=== PATIENT | male | born 1975 | race Caucasian/White ===

== ENCOUNTER 2023-10-09 08:32 | Day surgery (SDC) | payer OTHER, SELFPAY ==
[2023-10-09] MEDS: LACTATED RINGERS 1,000 ML 42 ML IV (09:00)
[2023-10-09 09:01] VITALS: BP 106/75; PULSE 85; RESP 18; TEMP 36.3; O2SAT 98
--- NOTE | 2023-10-09 09:11 | PM.HP.1 ---
History of Present Illness History of Present Illness Date Patient Seen: 10/09/23 Time Patient Seen: 09:12 Chief complaint: Colonoscopy Narrative: Elliott is a 48-year-old man who is here for a colonoscopy pelvic pain. See previous office note details [facility] Medical History (Updated 09/04/23 @ 10:18 by Alysha Mccarthy RN) Dysplastic nevi Social History Smoking Status: Never smoker alcohol intake: current Meds Home Medications and Allergies Home Medications Medication Instructions Recorded Confirmed Type cholecalciferol (vitamin D3) 25 75 mcg PO DAILY 09/04/23 09/04/23 History mcg (1,000 unit) capsule coenzyme Q10 100 mg capsule 100 mg PO DAILY 09/04/23 09/04/23 History multivitamin with minerals 1 tab PO DAILY 09/04/23 09/04/23 History (Multiple Vitamin-Minerals tablet) omega-3 fatty acids 1,000 mg 1,000 mg PO DAILY 09/04/23 09/04/23 History capsule Allergies Allergy/AdvReac Type Severity Reaction Status Date / Time No Known Drug Allergies Allergy Verified 10/09/23 08:58 Exam Vital Signs (past 8 hours): - 10/09/23 09:01 Temperature 97.3 F L Pulse Rate 85 Respiratory Rate 18 Blood Pressure 106/75 Pulse Oximetry 98 Const General: healthy appearing Assessment & Plan Assessment and plan (1) Rectal pain: Status: Acute Plan We reviewed the risks and colonoscopy and he would like to proceed.
--- NOTE | 2023-10-09 09:35 | PM.OP.COLON ---
Operative Date/Time/Diagnoses Date of procedure: 10/09/23 Time of procedure: 09:35 Pre-op diagnosis: Rectal pain Post-op diagnosis: same Procedure & Clinicians Study performed: Colonoscopy Same procedure as scheduled: Yes Surgeon: Tung Chacon Procedure Notes Procedure in detail: Surgeon: Tung Chacon MD Anesthesia: Mercedez Allen CRNA Procedure: The patient was brought to the endoscopy suite, placed in left lateral decubitus position. The patient was connected to monitoring devices. A time-out was performed. Sedation was administered. Once the patient was adequately sedated, a digital rectal exam was performed and was normal. The scope was then inserted and advanced to the cecum where the appendiceal orifice was identified and photographed. The scope was then slowly withdrawn over greater than 6 minutes. The mucosa was thoroughly inspected. No abnormalities were found. The scope was retroflexed in the rectum. No abnormalities were seen there. The scope was straightened and removed. The patient was awakened and brought to recovery. Scope withdrawal time: 10 minutes Sedation time: 14 minutes EBL: 0 Findings: Normal colon Post-procedure Recommendations: Colonoscopy in 10 years Disposition: PACU
[2023-10-09 09:36] VITALS: BP 86/57; PULSE 77; RESP 15; TEMP 36.3; O2SAT 95
[2023-10-09 09:41] VITALS: BP 87/51; PULSE 74; RESP 16; O2SAT 95
[2023-10-09 09:46] VITALS: BP 95/64; PULSE 79; RESP 17; O2SAT 96
[2023-10-09 09:51] VITALS: BP 96/69; PULSE 74; RESP 16; O2SAT 99
[2023-10-09 09:57] VITALS: BP 100/69; PULSE 74; RESP 17; TEMP 36.4; O2SAT 98
== END 2023-10-09 10:07 | disposition home or self-care (01) ==
PROVIDERS: PCP Family Medicine; Referring Provider Surgery; Visit Provider Surgery
PROC: 0DJD8ZZ Inspection of Lower Intestinal Tract, Via Natural or Artificial Opening Endoscopic (ICD-10-PCS; CPT 45378; principal; 2023-10-09 09:30)
DX: K62.89 Other specified diseases of anus and rectum (principal)
CPT/HCPCS: 45378; J2704

== ENCOUNTER → 2023-11-21 10:00 | Outpatient (CLI) | payer OTHER, SELFPAY ==
--- NOTE | 2023-11-21 10:01 | DI.CT.S_ITS ---
PROCEDURE: CT ABDOMEN PELVIS W CON INDICATIONS: Pelvic pain TECHNIQUE: After the administration of intravenous contrast, axial sections acquired from the lung bases to the pubic symphysis. Coronal and sagittal reformats were performed. For radiation dose reduction, the following was used: automated exposure control, adjustment of mA and/or kV according to patient size. COMPARISON: None. FINDINGS: Image quality: Diagnostic. Lower Chest: No significant findings. ABDOMEN: Liver: No solid mass. Gallbladder: No radiopaque gallstones or wall thickening. Biliary ducts: No biliary dilation. Pancreas: No ductal dilation. Spleen: Size is within normal limits. Adrenal Glands: No adrenal nodules. Kidneys and Ureters: No hydronephrosis. No solid mass. No complex renal cystic lesion which requires follow up. Stomach and Bowel: Normal colonic caliber, without significant wall thickening. Diverticulosis. No diverticulitis. Normal appendix. Peritoneum: No abnormal intraperitoneal fluid. No free air. Ventral Wall: No significant ventral hernia. Abdominal Nodes: No retroperitoneal or mesenteric adenopathy by size criteria. Vessels: Aorta and inferior vena cava are normal in size. PELVIS: Pelvic Organs: Prominent prostate gland. Bladder: No stones. Pelvic Nodes: No enlarged lymph nodes. Miscellaneous: No convincing inguinal hernias are seen. Bones: No aggressive osseous abnormality. IMPRESSION: 1. No acute abnormality identified. No free fluid. 2. Diverticulosis. No diverticulitis. Dictated by: Taj Tesfaye M.D. on 11/21/2023 at 13:33 Approved by: Taj Tesfaye M.D. on 11/21/2023 at 13:49
== END ==
LOC: CT 10:01
PROVIDERS: PCP Family Medicine; Referring Provider Surgery; Visit Provider Surgery
DX: K62.89 Other specified diseases of anus and rectum (principal); K57.90 Diverticulosis of intestine, part unspecified, without perforation or abscess without bleeding
CPT/HCPCS: 74177; Q9967